=== PATIENT | female | born 2005 | race Caucasian/White ===

== ENCOUNTER 2023-10-28 12:21 | Outpatient (CLI) | payer OTHER, SELFPAY ==
[2023-10-30 11:32] LABS: TB Skin Test Erythema 0 mm; TB Skin Test Induration 0 mm (0-10); TB Skin Test Interpretation Negative (Negative)
[2023-10-30 11:34] LABS: TB Skin Test Site Left Arm
== END 2023-10-28 12:22 | disposition home or self-care (01) ==
PROVIDERS: PCP Nurse Practitioner Family; Visit Provider Nurse Practitioner Family
DX: Z02.1 Encounter for pre-employment examination (principal)
CPT/HCPCS: 36415; 86580

== ENCOUNTER 2023-11-09 08:42 | Outpatient (CLI) | payer OTHER, SELFPAY ==
[2023-11-11 09:01] LABS: TB Skin Test Erythema 0 mm; TB Skin Test Induration 0 mm (0-10); TB Skin Test Interpretation Negative (Negative); TB Skin Test Site Right Arm
== END 2023-11-09 08:43 | disposition home or self-care (01) ==
LOC: CHSLAB 08:43
PROVIDERS: PCP Nurse Practitioner Family; Visit Provider Nurse Practitioner Family
DX: Z02.1 Encounter for pre-employment examination (principal)
CPT/HCPCS: 36415; 86580

== ENCOUNTER 2024-02-15 15:18 | Outpatient (CLI) | payer OTHER, SELFPAY ==
--- NOTE | ~2024-02-15 | US_ITS ---
EXAMINATION: US axilla RT DATE: 02/15/2024 15:33 INDICATION: Localized swelling, mass or lump at the right upper limb TECHNIQUE: Multiple grayscale and Doppler ultrasound images of the region of concern at the right axi lla were obtained. COMPARISON: None FINDINGS: At the region of concern is a 1.3 x 1.1 x 0.4 cm very mixed anechoic and very hypoechoic lesion with posterior acoustic enhancement consistent with a cystic lesion. There is a subtle hypoechoic tract ex tending to the skin surface most consistent with an epidermoid/sebaceous cyst. No other abnormal mass es or fluid collections identified. IMPRESSION: 1. 1.3 x 1.1 x 0.4 cm subdermal lesion with appearance most consistent with an epidermoid/sebaceous c yst. Reviewed, dictated and finalized at location A. IMPRESSION: 1. 1.3 x 1.1 x 0.4 cm subdermal lesion with appearance most consistent with an epidermoid/sebaceous cyst.
== END 2024-02-15 15:19 | disposition home or self-care (01) ==
PROVIDERS: PCP Pediatrics; Visit Provider Nurse Practitioner Family
DX: R22.31 Localized swelling, mass and lump, right upper limb (principal)
CPT/HCPCS: 76882